=== PATIENT | female | born 2000 | race Caucasian/White ===

== ENCOUNTER 2023-12-18 09:09 | Emergency (ER) | payer SELFPAY ==
[2023-12-18] VITALS (9 sets, daily range): BP systolic 105–140; BP diastolic 47–86; PULSE 82–92; BMI 32.3
[2023-12-18 10:02] LABS: % Basophils 0.6 % (0-2); % Eosinophils 2.3 % (0-6); % Immature Granulocytes 0.4 % (0-0.5); % Lymphocytes 24.2 % (20.5-51.1); % Monocytes 5.5 % (1.7-9.3); Absolute Basophils 0.1 10^3/uL (0-0.2); Absolute Eosinophils 0.2 10^3/uL (0-0.7); Absolute Lymphocytes 1.9 10^3/uL (1.2-3.4); Absolute Monocytes 0.4 10^3/uL (0.1-0.6); Absolute Neutrophils 5.4 10^3/uL (1.4-6.5); Hematocrit 36.8 % (37.0-47.0); Hemoglobin 11.9 g/dL (12.0-16.0); Mean Corp Hgb Conc. 32.3 g/dL (33.0-37.0); Mean Corpuscular Hgb 26.6 pg (27.0-31.0); Mean Corpuscular Volume 82.1 fL (81.0-99.0); Mean Platelet Volume 10.2 fL (7.4-10.4); Nucleated Red Blood Cells % 0 %; Platelet Count 253 10^3/uL (130-400); Red Blood Cell Count 4.48 10^6/uL (4.20-5.40); Red Cell Dist. Width 13.8 % (11.5-14.5)
[2023-12-18 10:15] LABS: HCG, Serum Qualitative Screen Negative
--- NOTE | 2023-12-18 10:21 | ED.GENMED ---
History of Present Illness
General
Chief Complaint: Chest Problem
Source: patient
Exam Limitations: none
Time Seen by Provider: 12/18/23 10:03
Travel History
Have you had any contact with someone who has COVID-19?: No
Do you have any symptoms of coronavirus? Fever > 100 degrees, chills, cough, shortness of breath, sore throat, loss of taste or smell, muscle aches, or headache?: No
History of Present Illness
History of Present Illness:
23-year-old female presents complaining of neck pressure headache chest pain. The pain in her chest is pleuritic and sharp stabbing radiates down the left arm. Occasionally she is short of breath. No fevers. She denies sore throat. She denies
abdominal pain nausea or vomiting. No cough. No recent travel or surgery. No leg swelling or calf pain. No other complaints at this time
Past History
Past History
ED Past Medical History: Asthma, Fibromyalgia, Psychiatric (anxiety) and Other (Anxiety, recent concussion, IBS, fibromyalgia); Negative HTN, Hypercholesterolemia or NIDDM
ED Past Surgical History: Tonsilectomy
Social History
Tobacco: Smoker
Alcohol: Occasional
Drug: Marijuana
Personal: Single
Living: with family
Employment: Employed
Family History
Family History: Other (Colon cancer, thyroid cancer, diabetes)
Phy Exam
Physical Exam
Physical Exam:
General: Well-appearing female no acute respiratory distress
HEENT: Normocephalic atraumatic posterior pharynx without erythema or exudate neck is supple no adenopathy no nuchal rigidity right TM not visible secondary to cerumen impaction in the right canal, left TM within normal limits
Heart: Regular rate and rhythm no murmurs
Lungs: Clear no wheeze or Rales
Abdomen soft nontender nondistended no guarding or rebound no bowel sounds
Extremities: No cyanosis
Course
Orders/Labs/Results
Orders:
Orders
12/18/23 09:12
ECG [Electrocardiogram (*1)] Urgent
Reason for Study: Chest Pain
12/18/23 09:13
EKG- Treatment ONCE
12/18/23 09:20
Test Result ONCE
12/18/23 09:29
Complete Blood Count/With Diff Urgent
Comprehensive Metabolic Panel Urgent
HCG, Serum Qualitative Screen Urgent
TSH Urgent
Troponin I Urgent
12/18/23 10:24
D-Dimer Urgent
12/18/23 11:03
CR Chest - 2 Views Urgent
Comment:
Reason For Exam: chest pain
12/18/23 12:42
Orthostatic VS- Treatment ONCE
Abnormal Lab Results
12/18/23
09:29
Hgb 11.9 L g/dL
(12.0-16.0)
Hct 36.8 L %
(37.0-47.0)
MCH 26.6 L pg
(27.0-31.0)
MCHC 32.3 L g/dL
(33.0-37.0)
BUN 18 H mg/dl
(7-17)
12/18/23 09:29
12/18/23 09:29
Vital Signs
Initial and Last Documented VS:
Initial Vital Signs
Temp Pulse Resp BP Pulse Ox
98.5 F 92 18 125/85 100
12/18/23 09:17 12/18/23 09:17 12/18/23 09:17 12/18/23 09:17 12/18/23 09:17
Last Documented Vital Signs
Temp Pulse Resp BP Pulse Ox
98.5 F 85 8 140/86 97
12/18/23 09:17 12/18/23 13:15 12/18/23 13:15 12/18/23 13:06 05/09/24 13:15
MDM/Problems Addressed
Differential Diagnosis Includes:
Chest pain with neck pressure. Question viral illness versus dissection versus PE versus ACS. Check labs. She also notes occasional palpitations. Troponin D-dimer TSH pending
*Critical Care Note
Total Time (30-74mins, 75-104mins- exclusive of procedures): Not Applicable
Update Note
Update Note:
Patient reevaluated multiple times. Vital signs remained stable. She does have PVCs on the monitor. She describes occasional stronger heartbeat which I think is for PVCs. Chest x-ray is clear D-dimer and troponin undetectable. Orthostatic vital
signs stable. At this point no acute finding noted on today's workup. Will recommend follow-up with family doctor for persistence of symptoms. Return precautions were given
ED Attending Note
-
Portions of this chart may have been created with voice recognition software.� Occasional wrong word or��sound alike� substitutions may have occurred due to the inherent limitations of voice recognition software.
Discharge Plan
Departure
Patient Disposition: Home (Routine Discharge)
Date of Disposition: 12/18/23
Time of Disposition: 13:54
Patient with high blood pressure during this ER visit?: No
Discharge Problem:
Palpitations
Instructions: Chest Pain PCP Follow Up
Prescriptions:
No Action
alprazolam 1 MG tablet
1 mg PO HSPRN PRN (Reason: anxiety)
Referrals:
NONE,* [Family Provider] -
Activity Restrictions/Additional Instructions:
Please return here for worsening symptoms otherwise follow-up with your family doctor
Interventions
Interventions:
*Risk Screen - Suicide Last Done: 12/18/23 10:16
*General Assessment Last Done: 12/18/23 10:16
*Neglect/Abuse Screening Last Done: 12/18/23 10:16
ED- Fall Risk Assessment Last Done: 12/18/23 10:16
*ED COVID-19 Vaccine History Last Done: 12/18/23 09:17
ED- Cardiac Assessment Last Done: 12/18/23 10:41
ED- Pulmonary Assessment Last Done: 12/18/23 10:41
Discharge Date and Time
Print Language: CAMBODIAN
[2023-12-18 10:22] LABS: ALT (SGPT) 13 U/L (0-35); AST (SGOT) 17 U/L (14-36); Albumin 4.1 g/dl (3.5-5.0); Alkaline Phosphatase 69 U/L (38-126); Blood Urea Nitrogen 18 mg/dl (7-17); Calcium 9.2 mg/dl (8.4-10.2); Carbon Dioxide 27 mmol/L (22-30); Chloride 107 mmol/L (98-107); Estimated Creatinine Clearance > 125 ml/min; Glucose 97 mg/dl (70-99); Potassium 4.5 mmol/L (3.5-5.1); Sodium 139 mmol/L (135-145); Total Bilirubin 0.2 mg/dl (0.2-1.3); Total Protein 6.8 g/dl (6.3-8.2); eGFR > 60.00
[2023-12-18 10:31] LABS: Troponin I < 0.012 ng/ml
[2023-12-18 10:51] LABS: TSH 1.46 uIU/ml (0.47-4.68)
[2023-12-18 10:56] LABS: D-Dimer 0.29 ug/mlFEU (0.00-0.50)
== END 2023-12-18 14:23 | disposition home or self-care (01) ==
LOC: EMR 09:09
PROVIDERS: Physician Assistant; EMERGENCY PHYSICIAN Emergency Medicine
DX: R00.2 Palpitations (principal); R07.9 Chest pain, unspecified; R51.9 Headache, unspecified; F17.200 Nicotine dependence, unspecified, uncomplicated; I49.3 Ventricular premature depolarization
CPT/HCPCS: 99285; 71046; 80053; 84443; 84484; 84703; 85025; 85379; 93005

== ENCOUNTER 2024-09-07 08:36 | Emergency (ER) | payer OTHER, SELFPAY ==
[2024-09-07 08:40] VITALS: BP 118/77
[2024-09-07 09:06] LABS: % Basophils 0.6 % (0-2); % Eosinophils 3.5 % (0-6); % Immature Granulocytes 0.3 % (0-0.5); % Lymphocytes 25.4 % (20.5-51.1); % Monocytes 5.1 % (1.7-9.3); % Neutrophils 65.1 % (42.2-75.2); Absolute Basophils 0.1 10^3/uL (0-0.2); Absolute Eosinophils 0.3 10^3/uL (0-0.7); Absolute Monocytes 0.4 10^3/uL (0.1-0.6); Absolute Neutrophils 5.1 10^3/uL (1.4-6.5); Hematocrit 38.1 % (37.0-47.0); Hemoglobin 12.7 g/dL (12.0-16.0); Mean Corp Hgb Conc. 33.3 g/dL (33.0-37.0); Mean Corpuscular Hgb 26.4 pg (27.0-31.0); Mean Corpuscular Volume 79.2 fL (81.0-99.0); Mean Platelet Volume 9.9 fL (7.4-10.4); Nucleated Red Blood Cells % 0 %; Platelet Count 259 10^3/uL (130-400); Red Blood Cell Count 4.81 10^6/uL (4.20-5.40); Red Cell Dist. Width 14.3 % (11.5-14.5); White Blood Cell Count 7.8 10^3/uL (4.8-10.8)
[2024-09-07 09:24] LABS: HCG, Serum Qualitative Screen Negative
[2024-09-07 09:29] LABS: ALT (SGPT) 12 U/L (0-35); AST (SGOT) 19 U/L (14-36); Albumin 4.3 g/dl (3.5-5.0); Alkaline Phosphatase 66 U/L (38-126); Blood Urea Nitrogen 14 mg/dl (7-17); Carbon Dioxide 25 mmol/L (22-30); Chloride 104 mmol/L (98-107); Glucose 92 mg/dl (70-99); Lipase 55 U/L (23-300); Potassium 4.1 mmol/L (3.5-5.1); Sodium 140 mmol/L (135-145); Total Bilirubin 0.4 mg/dl (0.2-1.3); eGFR > 60.00
[2024-09-07 09:52] LABS: TSH Reflex To Free T4 1.76 uIU/ml (0.47-4.68)
[2024-09-07 11:32] VITALS: BP 106/67
--- NOTE | 2024-09-07 13:16 | ED.GENMED ---
History of Present Illness
General
Chief Complaint: Abdominal Symptoms
Source: patient
Exam Limitations: none
Time Seen by Provider: 09/07/24 11:00
History of Present Illness
History of Present Illness:
Patient has not had a menstrual period in 37 days. In addition she has had stool with fat in it vague abdominal symptoms mostly upper abdomen. Episodes of palpitations at times. This is all been going on for weeks. Some weight gain. She called
her primary physician who recommended ER evaluation.
Past History
Past History
ED Past Medical History: Asthma, Fibromyalgia, Psychiatric (anxiety) and Other (Anxiety, recent concussion, IBS, fibromyalgia); Negative HTN, Hypercholesterolemia or NIDDM
ED Past Surgical History: Tonsilectomy
Social History
Tobacco: Smoker
Alcohol: Occasional
Drug: Marijuana
Personal: Single
Living: with family
Employment: Employed
Family History
Family History: Other (Colon cancer, thyroid cancer, diabetes)
Review of Systems
Review of Systems
All Other Systems: Not applicable
Constitutional: Denies fever
Respiratory: Reports no symptoms
Cardiac: Reports no symptoms
Phy Exam
Physical Exam
Physical Exam:
GENERAL: Alert and oriented in no apparent distress
EYE: Orbits normal.
NECK: Supple
CARDIAC: Regular rate and rhythm without any obvious murmurs.
LUNGS: Clear breath sounds,normal
ABDOMEN: Soft, mild epigastric tenderness mild left upper quadrant tenderness. No rebound or guarding no mass or hernia no liver or spleen palpable. Discussed we would recommend he do it on his own without help I guess that he is going to do if he
truly is once in a rare while this for benzos he knows Librium or Ativan to last for 2 or 3 days and then again I think the approach she is going to take
NEUROLOGICAL: Alert and oriented , grossly non-focal
SKIN: Warm and dry, no rash or lesion, no discoloration, skin intact.
MUSCULOSKELETAL: No edema,no deformity.Good color
PSYCH: Normal and appropriate interaction.
Course
Orders/Labs/Results
Orders:
Orders
09/07/24 08:43
Test Result ONCE
09/07/24 08:48
Complete Blood Count/With Diff Urgent
Comprehensive Metabolic Panel Urgent
HCG, Serum Qualitative Screen Urgent
Lipase Urgent
TSH Reflex To Free T4 Urgent
09/07/24 11:10
EKG [Electrocardiogram (*1)] Urgent
Reason for Study: Palpitations
EKG- Treatment ONCE
09/07/24 11:11
US Abdomen Complete/Upper Urgent
Comment:
Reason For Exam: Abdominal pain mostly upper with irregular menses
US Pelvis Only (non-obstetric) Urgent
Comment:
Reason For Exam: Abdominal pain/irregular menses
Abnormal Lab Results
09/07/24
08:48
MCV 79.2 L fL
(81.0-99.0)
MCH 26.4 L pg
(27.0-31.0)
09/07/24 08:48
09/07/24 08:48
Vital Signs
Initial and Last Documented VS:
Initial Vital Signs
Temp Pulse Resp BP Pulse Ox
98.4 F 98 18 118/77 99
09/07/24 08:40 09/07/24 08:40 09/07/24 08:40 09/07/24 08:40 09/07/24 08:40
Last Documented Vital Signs
Temp Pulse Resp BP Pulse Ox
98.4 F 86 18 108/70 98
09/07/24 08:40 09/07/24 14:41 09/07/24 14:41 09/07/24 14:41 09/07/24 14:41
MDM/Problems Addressed
Differential Diagnosis Includes:
Patient's exam unremarkable. Labs stable. Labs from yesterday at another facility stable. Discussed CT versus ultrasound. She has had multiple CTs in the past. Feel this is a nonemergent issue and very unlikely to be acutely surgical. We will
do ultrasounds.
*Pulse Oximetry
Patient hypoxic: no
*EKG
Interpreted by ED Provider?: Yes
Interpretation: abnormal
Comparison EKG: changes noted
Heart Rate: 77
Rate: normal
Rhythm: sinus and PVC's
Geraldine: normal axis
Interval: normal interval
QRS Pattern: normal QRS
Ischemia: no ischemia
*Critical Care Note
Total Time (30-74mins, 75-104mins- exclusive of procedures): Not Applicable
Data Reviewed
Review of Other/Old Records Reveals: Labs, Records and Testing
ED Attending Note
-
Portions of this chart may have been created with voice recognition software.� Occasional wrong word or��sound alike� substitutions may have occurred due to the inherent limitations of voice recognition software.
Discharge Plan
Departure
Patient Disposition: Home (Routine Discharge)
Date of Disposition: 09/07/24
Time of Disposition: 13:56
Patient with high blood pressure during this ER visit?: No
Discharge Problem:
Ongoing abdominal pain, Palpitations/PVCs, Irregular menses
Instructions: Ventricular premature beats, Abdominal Pain
Prescriptions:
No Action
alprazolam 1 MG tablet
1 mg PO HSPRN PRN (Reason: anxiety)
Referrals:
NONE,* [Family Provider] -
Activity Restrictions/Additional Instructions:
You are having premature ventricular contractions which may be the explanation for palpitations. For completeness I would recommend following up with cardiology. I have given you a name here you could call
You should also call your [employer] physician for follow-up.
Follow-up with your primary care physician for your abdominal issues.
Interventions
Interventions:
*Risk Screen - Suicide Last Done: 09/07/24 08:40
*General Assessment Last Done: 09/07/24 08:40
*Neglect/Abuse Screening Last Done: 09/07/24 08:40
*ED COVID-19 Vaccine History Last Done: 09/07/24 11:32
*Nursing Disposition Last Done: 09/07/24 14:41
LE-Bxryhh-Kyqopdawsd Assessment Last Done: 09/07/24 11:32
Discharge Date and Time
Discharge Date/Time: 09/07/24 14:42
Print Language: SAMOAN
[2024-09-07 14:41] VITALS: BP 108/70
== END 2024-09-07 14:42 | disposition home or self-care (01) ==
LOC: EMR 08:36
PROVIDERS: EMERGENCY PHYSICIAN Emergency Medicine
DX: R00.2 Palpitations (principal); J45.909 Unspecified asthma, uncomplicated; M79.7 Fibromyalgia; F41.9 Anxiety disorder, unspecified; K58.9 Irritable bowel syndrome, unspecified; F17.200 Nicotine dependence, unspecified, uncomplicated; I49.3 Ventricular premature depolarization; Z80.0 Family history of malignant neoplasm of digestive organs; Z83.3 Family history of diabetes mellitus
CPT/HCPCS: 99284; 76700; 76856; 80053; 83690; 84443; 84703; 85025; 93005